=== PATIENT | female | born 1975 | race African-American/Black ===

== ENCOUNTER 2019-03-21 20:52 | Emergency (ER) | payer OTHER ==
[~2019-03-21] VITALS: Ht 157.5 cm; Wt 98.1 kg
[~2019-03-21 20:52] MED LIST: ACET-141 PO; BEN25 PO; FAMO-96 PO; PRENAT PO; TRIA15CR55 TOP
[2019-03-21 20:56] VITALS: BP 134/74; PULSE 85; RESP 16; Ht 157.5 cm; Wt 98.1 kg
--- NOTE | 2019-03-21 21:25 | ERD ---
ER Documentation Chief Complaint Chief Complaint multiple mosquito bites s/p sitting on grass x1 day. no fever HPI 43-year-old female with no reported past medical or surgical history presents with complaints of multiple mosquito bites to bilateral lower extremities. Patient states she was at a relatives house 1 day ago when she experienced symptoms. She denies any fevers, chills, shortness of breath, dyspnea, tongue swelling, worsening of rash, or any other concerning symptoms. Has had localized itching to affected areas and mild pain. She denies any allergies to medication reports all vaccinations up-to-date. ROS All systems reviewed and are negative except as per history of present illness. Medications Home Meds Active Scripts Famotidine* (Pepcid*) 20 Mg Tablet, 20 MG PO BID for 4 Days, TAB Prov:ROBERT BECKWITH PA-C 03/21/19 Diphenhydramine Hcl* (Benadryl*) 25 Mg Cap, 25 MG PO Q6, #30 CAP Prov:ROBERT BECKWITH PA-C 03/21/19 Reported Medications Acetaminophen* (Acetaminophen*) 500 MG Extra Strength Tablet, 500 MG PO Q4H PRN for PAIN AND OR ELEVATED TEMP, TAB 05/22/16 Multivit/Min/Fol Ac/Iron/Pren* ( S*) 1 Tab Tab, 1 TAB PO DAILY, TAB 05/22/16 Allergies Allergies: Coded Allergies: No Known Allergy (Unverified Allergy, Unknown, 08/12/06) PMhx/Soc History of Surgery: No Anesthesia Reaction: No Hx Neurological Disorder: No Hx Respiratory Disorders: No Hx Cardiac Disorders: No Hx Psychiatric Problems: No Hx Miscellaneous Medical Probl: No Hx Alcohol Use: No Hx Substance Use: No Hx Tobacco Use: No FmHx Family History: No diabetes, No coronary disease, No other Physical Exam Vitals Vital Signs Date Temp Pulse Resp B/P (MAP) Pulse Ox O2 O2 Flow FiO2 Time Delivery Rate 03/21/19 98.5 85 16 134/74 97 20:56 (94) Physical Exam I have reviewed the triage vital signs. Const: Well nourished, well developed, appears stated age Eyes: PERRL, no conjunctival injection HENT: NCAT, Neck supple without meningismus CV: RRR, Warm, well-perfused extremities RESP: CTAB, Unlabored respiratory effort GI: soft, non-tender, non-distended, no masses MSK: No gross deformities appreciated Skin: Warm, dry. He with small pinpoint areas of erythema, not appearing infected Neuro: grossly non focal Psych: Appropriate mood and affect. Procedures/MDM 43-year-old female who presents with uncomplicated insect bite. I have low suspicion for any anaphylactic type reaction warranting further emergent care work-up. None of the wound appears infected. Patient is he medically stable without any red flag symptoms. Will discharge with symptomatic care with Benadryl and H2 rowdy. Strict return precautions explained in detail. DISPOSITION PLAN: We discussed follow up with the patient's primary care doctor within 24 to 48 hours. Patient counseled regarding my diagnostic impression and care plan. Prior to discharge all questions answered. Pt agrees with treatment plan and understands strict return precautions. Precautionary instructions provided including instructions to return to the ER if not improving or for any worsening or changing symptoms or concerns. Disclaimer: Inadvertent spelling and grammatical errors are likely due to EHR/dictation software use and do not reflect on the overall quality of patient care. Also, please note that the electronic time recorded on this note does not necessarily reflect the actual time of the patient encounter. Departure Diagnosis: Primary Impression: Insect bite Condition: Stable Patient Instructions: Insect Bite Additional Instructions: Call your primary care doctor TOMORROW for an appointment during the next 2-3 days.See the doctor sooner or return here if your condition worsens before your appointment time. ROBERT BECKWITH PA-C Mar 21, 2019 21:25
== END 2019-03-21 21:46 | disposition home or self-care (01) ==
LOC: FTE 20:52
DX: S80.862A Insect bite (nonvenomous), left lower leg, initial encounter (principal); S80.861A Insect bite (nonvenomous), right lower leg, initial encounter; W57.XXXA Bitten or stung by nonvenomous insect and other nonvenomous arthropods, initial encounter; Y92.9 Unspecified place or not applicable
CPT/HCPCS: 99283